=== PATIENT | male | born 1940 | race African-American/Black ===

== ENCOUNTER 2020-10-09 07:55 | Emergency (ER) | payer SELFPAY ==
[~2020-10-09] VITALS: Ht 180.3 cm; Wt 100.0 kg
[~2020-10-09 07:55] MED LIST: AMOXICILLIN500 MG PO; DILTIAZEM60 MG PO; DILTIAZEM90 MG PO; FINASTERIDE5 MG PO; HYDROCHLORO25 MG/TAB PO; LISINOPRIL20 MG PO; METFORMIN500 MG PO; METOPROL TAR25 MG PO; OMEPRAZOLE20 MG PO; TERAZOSIN5 MG PO; TH VITAMIN B PO
[2020-10-09 08:52] LABS: HEMATOCRIT 41.9 % (39.0-50.0); HEMOGLOBIN 12.5 g/dl (14.0-18.0); IMMATURE GRANULOCYTES 0.4 % (0.0-5.0); MEAN CELL VOLUME 75.6 fL CALC (80.0-100.0); MEAN CORPUSCULAR HGB 22.6 pG CALC (26.0-32.0); MEAN CORPUSCULAR HGB CONC 29.8 g/dL CAL (32.0-36.0); NEUT# 6.46 thou/uL (1.82-7.42); RED BLOOD COUNT 5.54 mill/uL (4.70-6.10); RED CELL DISTRI WIDTH 15.7 % (11.5-15.5)
[2020-10-09 09:14] LABS: ALBUMIN 3.7 g/dL (3.2-5.0); CREATININE 1.7 mg/dL (0.7-1.3); POTASSIUM 4.2 mmol/l (3.5-5.1); TOTAL PROTEIN 6.9 g/dL (6.3-8.2)
[2020-10-09 09:28] LABS: BILIRUBIN, TOTAL 0.2 mg/dL (0.0-1.4)
[2020-10-09 11:19] LABS: URINE BILIRUBIN - DIPSTICK NEGATIVE (NEGATIVE); URINE BLOOD DIPSTICK NEGATIVE (NEGATIVE); URINE COLOR YELLOW; URINE GLUCOSE - DIPSTICK NEGATIVE (NEGATIVE); URINE KETONE NEGATIVE (NEGATIVE); URINE LEUK ESTERASE NEGATIVE (NEGATIVE); URINE PROTEIN - DIPSTICK 100 mg/dL (NEG-TRACE); URINE UROBILINOGEN - DIPSTICK 0.2 E.U./dL (0.2)
[2020-10-09 11:20] LABS: URINE NITRITE - DIPSTICK NEGATIVE (Negative)
[2020-10-09 12:10] VITALS: BP 170/80
== END 2020-10-09 12:28 | disposition left against medical advice (07) | DRG 948 ==
LOC: ED 07:55 → EDBD 07:55 → ED 09:03
PROVIDERS: Family Medicine
DX: R53.1 Weakness (principal); R79.89 Other specified abnormal findings of blood chemistry; I10 Essential (primary) hypertension; E11.9 Type 2 diabetes mellitus without complications; Z79.84 Long term (current) use of oral hypoglycemic drugs; Z91.19 Patient's noncompliance with other medical treatment and regimen; Z20.822 Contact with and (suspected) exposure to COVID-19

== ENCOUNTER 2021-05-22 10:33 | Observation (INO) | payer OTHER, MEDICARE ==
[~2021-05-22] VITALS: Ht 180.3 cm; Wt 106.7 kg
--- NOTE | 2021-05-22 11:00 | NUR ---
PT ESCORTED TO ROOM 8 VIA EMS STRETCHER WITH CO WEAKNESS
--- NOTE | 2021-05-22 12:00 | NUR ---
Reassessment of patient completed. No distress noted.
[2021-05-22 12:25] LABS: HEMATOCRIT 47.4 % (39.0-50.0); HEMOGLOBIN 14.7 g/dl (14.0-18.0); IMMATURE GRANULOCYTES 0.3 % (0.0-5.0); MEAN CELL VOLUME 73.9 fL CALC (80.0-100.0); MEAN CORPUSCULAR HGB 22.9 pG CALC (26.0-32.0); NEUT# 4.33 thou/uL (1.82-7.42); RED BLOOD COUNT 6.41 mill/uL (4.70-6.10); RED CELL DISTRI WIDTH 16.8 % (11.5-15.5)
[2021-05-22 12:42] LABS: ALBUMIN 3.6 g/dL (3.2-5.0); ALKALINE PHOSPHATASE 130 u/l (38-126); ANION GAP 15 (6-22 (CALC)); BUN 36 mg/dL (8-23); BUN/CREATININE RATIO 18 (12-20 (CALC)); CARBON DIOXIDE 20 mmol/l (22-30); CHLORIDE 108 mmol/l (95-108); GFR 32 ML/MIN (>=60 (CALC)); GFR FOR AFR.AMER. 39 ML/MIN (>=60 (CALC)); LIPASE 234 u/l (23-300); MAGNESIUM 2.5 mg/dL (1.6-2.3); POTASSIUM 4.8 mmol/l (3.5-5.1); SODIUM 138 mmol/l (137-146); TOTAL PROTEIN 7.3 g/dL (6.3-8.2)
[2021-05-22 12:48] LABS: BILIRUBIN, TOTAL 0.9 mg/dL (0.0-1.4); SGOT/AST 44 u/l (19-48)
--- NOTE | 2021-05-22 13:00 | NUR ---
Reassessment of patient completed. No distress noted.
--- NOTE | 2021-05-22 14:15 | NUR ---
Reassessment of patient completed. No distress noted.
--- NOTE | 2021-05-22 15:15 | NUR ---
Reassessment of patient completed. No distress noted.
--- NOTE | 2021-05-22 16:20 | NUR ---
Reassessment of patient completed. No distress noted.
--- NOTE | 2021-05-22 17:13 | NUR ---
Reassessment of patient completed. No distress noted.
--- NOTE | 2021-05-22 18:03 | NUR ---
Reassessment of patient completed. No distress noted.
--- NOTE | 2021-05-23 01:30 | NUR ---
ATTEMPTS FOR IV ACCESS. NO SUCCESSWW
--- NOTE | 2021-05-23 04:30 | NUR ---
UNABLE TO OBTAIN IV ACCESS. MEDICATIONS FROM EVENING SHIFT NOT GIVEN. MD TO PLACE CENTRAL LINE.
[2021-05-23 05:50] VITALS: BP 151/90
[2021-05-23 05:54] LABS: HEMOGLOBIN 14.6 g/dl (14.0-18.0); IMMATURE GRANULOCYTES 0.3 % (0.0-5.0); MEAN CELL VOLUME 74.5 fL CALC (80.0-100.0); MEAN CORPUSCULAR HGB 22.7 pG CALC (26.0-32.0); MEAN CORPUSCULAR HGB CONC 30.4 g/dL CAL (32.0-36.0); NEUT# 4.26 thou/uL (1.82-7.42); RED BLOOD COUNT 6.44 mill/uL (4.70-6.10); RED CELL DISTRI WIDTH 16.8 % (11.5-15.5)
--- NOTE | 2021-05-23 05:55 | NUR ---
PATIENT ADMITTED TO [facility] TO ROOM 267 VIA STRETCHER. PATIENT SCOOTED SELF OVER FROM THE STRETCHER TO THE ROOM BED. ASSESSMENT COMPLETE. PATIENT ALERT BUT CANT SAY WHEN HIS BIRTHDAY IS. HE DOES KNOW HE IS ''SOMEWHERE IN THE HOSPITAL''. NO SHORTNESS OF BREATH NOTED. DENIES PAIN. FLUSHED TRIPLE LUMEN CENTRAL LINE TO RIGHT FEMURAL AREA. ORIENTED PATIENT TO ROOM, CALL LIGHT AND SURROUNDINGS. CALL LIGHT AND BELONGINGS WITHIN REACH.
--- NOTE | 2021-05-23 06:05 | NUR ---
PT TAKEN TO [facility]
[2021-05-23 06:08] LABS: ALBUMIN 3.5 g/dL (3.2-5.0); C-REACTIVE PROTEIN 3.6 mg/dL (0-0.9); CREATININE 2.1 mg/dL (0.7-1.3); POTASSIUM 4.9 mmol/l (3.5-5.1); TOTAL PROTEIN 6.8 g/dL (6.3-8.2)
[2021-05-23 08:00] VITALS: BP 187/77
--- NOTE | 2021-05-23 08:30 | NUR ---
PT REFUSES TO TAKE PO MEDS METOTPROLOL AND DEXAMEHTASONE. EXPLAINED THE RISK AND BENIFITS OF MEDICATION. PT STATES THEY WILL TAKE THEM BUT DOES NOT. MATEO CRAWFORD ALSO EXPLAINED RISK AND BENEFITS BUT ALSO REFUSES. THREW PILLSON BED ONLY ABLE TO FIND DEXAMTHEASONE. PT HAS TELE MONITOR ON. FALL/SAFTEY PRECAUTIONS IN PLACE. CALL LIGHT IS WITHIN REACH. MAHESH DAILEY NOTIFIED ABOUT REFUSAL OF MEDICATION.
--- NOTE | 2021-05-23 10:00 | NUR ---
ASSESSMENT AND VITALS DONE AT THIS TIME. PT IS ALERT TO PERSON/SELF. DOES NOT REALLY ANSWER WHEN SPOKEN TO. LUNG SOUNDS ARE DIMINISHED UPPER/LOWER LOBES. EXPIRATORY WHEEZING IN LOWER LOBES ANTERIOR AND POSTERIOR. HEART SOUNDS ARE REGULAR. TELE MONITOR IN PLACE, CONTINOUS MONITORING BY ED. RADIAL AND PEDAL PULSE STRONG. PT HAS FEMORAL CENTRAL LINE TRIPLE LUMEN. ABLE TO GET BLOOD RETURN ON EACH LUMEN. NS INFUSING PER EMAR. GLUCOSE CHECK THIS MORNING 291, COVERED PER SLIDING SCALE. BOWEL SOUNDS ACTIVE X4. FALL/SAFETY PRECAUTIONS IN PLACE. CALL LIGHT IS WITHIN REACH.
[2021-05-23 11:06] VITALS: BP 126/77
--- NOTE | 2021-05-23 12:00 | NUR ---
PT EATING LUNCH AT THIS TIME. REPORTS NO PAIN AT THIS TIME. TELE MONITOR IN PLACE. FALL/SAFTEY PRECAUTIONS IN PLACE. CALL LIGHT WITHIN REACH.
[2021-05-23 15:18] VITALS: BP 146/68
[2021-05-23 19:00] VITALS: BP 119/77
[2021-05-24] VITALS: BP 135/73
[2021-05-24 04:00] VITALS: BP 159/73
--- NOTE | 2021-05-24 08:00 | NUR ---
ASSESSMENT AND VITALS DONE AT THIS TIME. LUNG SOUNDS DIMINISHED UPPER LOWER LOBES ANTERIOR AND POSTERIOR. HEART SOUNDS ARE REGULAR. TELE MONITOR IN PLACE. CONTINOUS MONITORING BY ED. BOWEL SOUNDS ACTIVE X4. PT IS ALERT TO PERSON HOWEVER IS MORE ALERT ABLE TO OBEY COMMANDS. AND ALLOWED TO TAKE PO MEDS [id number]. STATES NO PAIN. PT HAS A TRIPLE LUMEN IS RIGHT FEMORAL. FLUSHED WITH NO RESISTANCE. NONE OF THE THREE LUMENS WERE ABLE TO GET BLOOD RETURN. FALL/SAFETY PRECAUTION IN PLACE. CALL LIGHT WITHIN REACH.
[2021-05-24] MEDS ORDERED: ZITHROMAX250 MG PO (10:54)
[2021-05-24] MEDS ORDERED: ASPIRIN REGULA325 M1 PO (10:55)
[2021-05-24] MEDS ORDERED: GLIPIZIDE XL10 MG PO (10:59)
--- NOTE | 2021-05-24 12:00 | NUR ---
PT RESTING IN BED WITH EYES CLOSED. BREATHING IS EVEN AND UNLABORED. TELE MONITOR IN PLACE. NO DISTRESS IS NOTED. CALL LIGHT IS WITHIN REACH. FALL/SAFTEY PRECAUTIONS IN PLACE
[2021-05-24 12:27] VITALS: BP 157/76
[2021-05-24 15:14] VITALS: BP 149/73
--- NOTE | 2021-05-24 16:47 | NUR ---
Discharge instructions given. Patient verbalizes understanding of same. Discharged in stable condition via Wheelchair to Home with staff. All belongings sent with pt. central line removed. triple lumen. catheter intact. tele monitor removed.
== END 2021-05-24 16:47 | disposition home health service (06) | DRG 177 ==
LOC: ED 10:33 → ED-I 14:23 → ED 14:23 → ED-I 18:00 → ED 18:34 → MS2 18:35
PROVIDERS: Emergency Medicine; ADMIT Internal Medicine; ATTEND Internal Medicine
PROC: XW033E5 Introduction of Remdesivir Anti-infective into Peripheral Vein, Percutaneous Approach, New Technology Group 5 (ICD-10-PCS; principal; 2021-05-23)
PROC: 06HY33Z Insertion of Infusion Device into Lower Vein, Percutaneous Approach (ICD-10-PCS; 2021-05-23)
DX: U07.1 COVID-19 (principal); J12.82 Pneumonia due to coronavirus disease 2019; N17.9 Acute kidney failure, unspecified; E11.65 Type 2 diabetes mellitus with hyperglycemia; I10 Essential (primary) hypertension; F03.90 Unspecified dementia, unspecified severity, without behavioral disturbance, psychotic disturbance, mood disturbance, and anxiety; Z60.2 Problems related to living alone